=== PATIENT | male | born 1955 | race Caucasian/White ===

== ENCOUNTER 2017-06-09 13:21 | Emergency (ER) | payer OTHER ==
[2017-06-09] MEDS ORDERED: Diphtheria,Pertussis(Acell),Tetanus Vaccine 0.5 ML SDV IM ONE (13:52)
--- NOTE | 2017-06-09 13:55 | EDM.PDOC ---
ED HPI GENERAL MEDICAL PROBLEM - General Chief Complaint: Laceration Stated Complaint: LEFT HAND INJURY AT WORK Time Seen by Provider: 06/09/17 13:45 Source of Information: Reports: Patient History Limitations: Reports: No Limitations - History of Present Illness INITIAL COMMENTS - FREE TEXT/NARRATIVE: 62 yo male got his L hand in a wood splitter before arrival. Has bruising and swelling dorsally and a laceration of his web space of that hand. Tetanus status is unknown. 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: Other (see below) (none) Left Hand Pain Score (Numeric/FACES): 8 - Related Data Allergies Allergy/AdvReac Type Severity Reaction Status Date / Time No Known Allergies Allergy Verified 06/09/17 13:37 Home Meds: Home Meds NK [No Known Home Meds] 06/09/17 [History] Past Medical History - Infectious Disease History Infectious Disease History: Reports: Chicken Pox - Past Surgical History GI Surgical History: Reports: Appendectomy, Colonoscopy Social & Family History - Tobacco Use Smoking Status *Q: Never Smoker Second Hand Smoke Exposure: No - Caffeine Use Caffeine Use: Reports: Soda, Tea - Alcohol Use Days Per Week of Alcohol Use: 0 - Recreational Drug Use Recreational Drug Use: No ED ROS GENERAL - Review of Systems Review Of Systems: See Below Constitutional: Reports: No Symptoms Musculoskeletal: Reports: Hand Pain (left) Skin: Reports: Bruising (dorsum of L hand), Wound (laceration) Neurological: Reports: No Symptoms ED EXAM, SKIN/RASH Exam: See Below Exam Limited By: No Limitations General Appearance: Alert, WD/WN, No Apparent Distress Respiratory/Chest: No Respiratory Distress, No Accessory Muscle Use Cardiovascular: Regular Rate, Rhythm Extremities: Limited Range of Motion (due to pain), Other (L hand swollen and ecchymotic) Neurological: Alert, Oriented, CN II-XII Intact, Normal Cognition, No Motor/ Sensory Deficits Psychiatric: Normal Affect, Normal Mood Skin: Warm, Dry, No Rash, Ecchymosis (dorsum of L hand), Wound/Incision (web space L hand between index and thumb.) Location, Skin: Upper Extremity, Left Characteristics: Linear Associated features: Tenderness Lymphatic: No Adenopathy ED SKIN PROCEDURES - Laceration/Wound Repair Left Hand Lac/Wound length In cm: 2.5 Appearance: Subcutaneous Distal NVT: Neuro & Vascular Intact Anesthetic Type: Local Local Anesthesia - Lidocaine (Xylocaine): 1% with EPI Local Anesthetic Volume: 5cc Skin Prep: Saline Exploration/Debridement/Repair: Wound Explored, No Foreign Material Found Closed with: Sutures Suture Size: other (5-0) Suture Type: Nylon # of Sutures: 8 Drain Placement: No Sterile Dressing Applied: Nurse Tetanus Status Addressed: Yes Complications: No Course - Vital Signs Last Recorded V/S: Last Vital Signs Temp 36.3 C 06/09/17 13:45 Pulse 65 06/09/17 13:45 Resp 18 06/09/17 13:45 BP 153/92 H 06/09/17 13:45 Pulse Ox 95 06/09/17 13:45 - Orders/Labs/Meds Orders: Active Orders 24 hr Category Date Time Status Vaccines to be Administered [RC] PER UNIT ROUTINE Care 06/09/17 13:52 Active Hand Comp Min 3V Lt [CR] Stat Exams 06/09/17 13:52 Ordered Meds: Medications Discontinued Medications Generic Name Dose Route Start Last Admin Trade Name Cristian PRN Reason Stop Dose Admin Diphtheria/Tetanus/Acell Pertussis 0.5 ml 06/09/17 13:52 Adacel IM 06/09/17 13:53 .ONCE ONE Lidocaine/Epinephrine 5 ml 06/09/17 14:08 Xylocaine 1% With Epinephrine 1:100,000 SUBCUT 06/09/17 14:09 NOW STA Oxycodone/Acetaminophen 1 tab 06/09/17 14:06 Percocet 325-5 Mg PO 06/09/17 14:07 ONETIME ONE Departure - Departure Time of Disposition: 14:50 Disposition: Home, Self-Care 01 Condition: Fair Clinical Impression: Hand laceration Qualifiers: Encounter type: initial encounter Foreign body presence: without foreign body Laterality: left Qualified Code(s): S61.412A - Laceration without foreign body of left hand, initial encounter Metacarpal bone fracture Qualifiers: Encounter type: initial encounter Metacarpal bone: fourth Fracture type: closed Metacarpal location: shaft Fracture alignment: nondisplaced Laterality: left Qualified Code(s): S62.355A - Nondisplaced fracture of shaft of fourth metacarpal bone, left hand, initial encounter for closed fracture - Discharge Information Referrals: Jermaine Bowden MD [Primary Care Provider] - Forms: ED Department Discharge - My Orders Last 24 Hours: My Active Orders 06/09/17 13:52 Vaccines to be Administered [RC] PER UNIT ROUTINE Hand Comp Min 3V Lt [CR] Stat - Assessment/Plan Last 24 Hours: My Active Orders 06/09/17 13:52 Vaccines to be Administered [RC] PER UNIT ROUTINE Hand Comp Min 3V Lt [CR] Stat
[2017-06-09] MEDS ORDERED: Acetaminophen/oxyCODONE 325-5 MG Tab PO ONE (14:06)
[2017-06-09] MEDS ORDERED: Lidocaine 1% with EPINEPHrine 1:100,000 50 ML MDV SUBCUT STA (14:08)
--- NOTE | 2017-06-09 14:26 | CR ---
Hand Comp Min 3V Lt INDICATION: wood splitter vs hand COMPARISON: None FINDINGS: 3 views. Transverse fracture midshaft of the fourth metacarpal. Minimal displacement in the polar angulation.
[2017-06-09] MEDS ORDERED: Bacitracin Oint 1 GM U/D Packet TOP ONE (14:46)
== END 2017-06-09 15:35 | disposition home or self-care (01) ==
LOC: JP.ED 13:21
DX: S62.355A Nondisplaced fracture of shaft of fourth metacarpal bone, left hand, initial encounter for closed fracture (principal); S61.412A Laceration without foreign body of left hand, initial encounter; Z23 Encounter for immunization; W45.8XXA Other foreign body or object entering through skin, initial encounter
CPT/HCPCS: 12001; 73130; 90471; 90715; 99283; A9270

== ENCOUNTER 2020-12-31 08:34 | Day surgery (SDC) | payer OTHER ==
[~2020-12-31 08:34] MED LIST: Midazolam 1 MG/ML 2 ML SDV ONE; Propofol 200 MG/20 ML SDV ONE; fentaNYL 100 MCG/2 ML SDV ONE
[2020-12-31] MEDS ORDERED: Glycopyrrolate 0.2 MG/ML 2 ML SDV IVPUSH ONE ×2 (08:45)
[2020-12-31] MEDS ORDERED: Dextrose 5%-Lactated Ringers 1,000 ML IV SCH (08:45)
--- NOTE | 2021-01-01 13:56 | PCM.EKG ---
#1 Interpretation EKG Date: 12/31/20 Time: 09:12 Rhythm: NSR Rate (Beats/Min): 60 [place]: LAD-Left [place] Deviation P-Wave: Present QRS: LBBB ST-T: Normal QT: Normal MS/PQ Interval: Normal Comparison: NA - No Prior EKG
--- NOTE | 2021-01-12 11:07 | OR ---
DATE OF PROCEDURE: 12/31/2020 SURGEON: Girish Pleitez MD PREOPERATIVE DIAGNOSIS: History of rectal bleeding. POSTOPERATIVE DIAGNOSES: History of rectal bleeding with patchy proximal duodenitis, potentially being a site of recent bleeding. PROCEDURE: Esophagogastroduodenoscopy with antral biopsies for CLOtest. ANESTHESIA: IV sedation. INDICATIONS FOR PROCEDURE: This is a 65-year-old male presenting with some recent rectal bleeding. He was just now started on omeprazole 20 mg a day. Plan is to proceed with an upper endoscopy with biopsies as indicated. Potential risks including bleeding and perforation were discussed, and the patient wishes to proceed. DETAILS OF PROCEDURE: The patient was taken to the operating room and placed in a left lateral decubitus position. IV sedation was administered after which the upper GI endoscope was passed orally through the length of the esophagus and stomach with retroflexion view of the fundus and thereafter through the pyloric channel and roughly to the level of the third and fourth portions of the duodenum. Findings included normal hypopharynx, larynx, upper esophageal sphincter, and esophageal body. At the EG junction, no significant hiatal hernia or inflammation were noted. Within the stomach, there was no blood or bleeding and no significant inflammation or masses. The pyloric channel was widely patent and on the duodenal bulb there was some patchy, fairly edematous, reddened mucosa consistent with duodenitis. No erosions or ulcers were seen at this time, but the patient had at that point been on proton pump inhibitor for a period of days. Beyond that, the duodenal findings normalized. The scope was then brought back up to the antrum and biopsies were obtained there for CLOtest for H. pylori. Minimal bleeding from biopsy sites was seen and the procedure then concluded. At this point, we will have the patient continue the omeprazole. He will be following up with Dr. Bowden in 3 to 4 weeks. If he continues to have further episodes of rectal bleeding, we would consider a followup colon examination. Girish Pleitez MD /[id number]
== END 2020-12-31 14:20 | disposition home or self-care (01) ==
LOC: JP.SDS 08:34
PROVIDERS: ATTEND Surgery
DX: K29.81 Duodenitis with bleeding (principal)
CPT/HCPCS: 43239; 87081; 93005; J2250; J2704; J3010; J3490; J7121